=== PATIENT | male | born 2000 | race African-American/Black ===

== ENCOUNTER 2021-06-04 00:46 | Emergency (ER) | payer BC, OTHER ==
[~2021-06-04] VITALS: Ht 182.9 cm; Wt 87.1 kg
[2021-06-04] MEDS ORDERED: LIDOCAINE 1% INJ 20 ML 20 ML VIAL INJ ONE (01:00)
[2021-06-04] MEDS ORDERED: TETANUS,DIPTH,PERTUSS P/F (BOOSTRIX) 0.5 ML VIAL IM ONE (01:00)
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
[2021-06-04] MEDS ORDERED: CEPH500T PO (04:11)
[2021-06-04] MEDS ORDERED: CEPHALEXIN 250 MG (KEFLEX) CAP PO STA (04:14)
[2021-06-04] MEDS ORDERED: HYDROcodone/APAP 5 MG/325 MG (LORTAB) TAB PO ONE (04:15)
[2021-06-04 04:40] VITALS: BP 134/87
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
== END 2021-06-04 04:52 | disposition home or self-care (01) ==
LOC: ER 00:50
DX: S61.412A Laceration without foreign body of left hand, initial encounter (principal); S61.411A Laceration without foreign body of right hand, initial encounter; Z23 Encounter for immunization; W22.8XXA Striking against or struck by other objects, initial encounter
CPT/HCPCS: 12001; 12031; 12042; 13152; 90715

== ENCOUNTER 2021-06-08 11:04 | Emergency (ER) | payer OTHER ==
[~2021-06-08] VITALS: Ht 182.8 cm; Wt 85.0 kg
[~2021-06-08 11:04] MED LIST: CEPH500T PO
[2021-06-08 11:50] VITALS: BP 127/74
== END 2021-06-08 11:49 | disposition home or self-care (01) ==
LOC: EDUNIT# 11:04 → ER 11:05
DX: Z48.02 Encounter for removal of sutures (principal)

== ENCOUNTER 2023-04-25 18:38 | Emergency (ER) | payer OTHER ==
[~2023-04-25] VITALS: Ht 182 cm; Wt 86.0 kg
[2023-04-25 18:45] VITALS: BP 141/96
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
[2023-04-25] MEDS ORDERED: LIDOCAINE 1% INJ 20 ML VIAL INJ ONE (19:00)
--- NOTE | 2023-04-25 19:12 | Diagnostic Imaging Report ---
INDICATION: Fourth finger pain. FINDINGS: There is a fourth finger dislocation at the proximal interphalangeal joint. No appreciable fracture; however, post-reduction radiographs recommended. The metacarpal and the remaining phalanges are unremarkable. The carpus appeared intact. IMPRESSION: Dorsal dislocation at the PIP of the fourth finger. No visible fracture. Dictated by: Dictated on workstation # [id number]
[2023-04-25] MEDS ORDERED: ACHD5005 PO (19:25)
--- NOTE | 2023-04-25 19:27 | Diagnostic Imaging Report ---
INDICATION: Post reduction. FINDINGS: There is successful reduction of the previous PIP dislocation at the fifth finger. A tiny bony density projects along the radial margin of the distal aspect of the proximal phalanx, ovoid, 2.8 mm in long axis, smoothly marginated and likely an ossicle. No fracture or acute appearing bony avulsion is felt present. IMPRESSION: Successful reduction of prior dislocation. No fracture identified. Dictated by: Dictated on workstation # [id number]
== END 2023-04-25 19:29 | disposition home or self-care (01) ==
LOC: EDUNIT# 18:38 → ER 18:40
DX: S63.284A Dislocation of proximal interphalangeal joint of right ring finger, initial encounter (principal); W21.01XA Struck by football, initial encounter; Y92.321 Football field as the place of occurrence of the external cause; Y93.61 Activity, american tackle football
CPT/HCPCS: 73130

== ENCOUNTER 2023-08-13 10:04 | Emergency (ER) | payer OTHER ==
[~2023-08-13] VITALS: Ht 182.8 cm; Wt 90.7 kg
[~2023-08-13 10:04] MED LIST changes: +ACHD5005 PO
--- NOTE | 2023-08-13 11:13 | ED EENT ---
History of Present Illness General Chief Complaint: Eye Problems Stated Complaint: RT EYE PAIN | CONJUNCTIVITIS Nursing Triage Note: PT AMB TO TRIAGE WITH CC OF BILATERAL EYE PAIN AND DISCOMFORT THAT STARTED Jul. PT WAS SEEN AT [facility] ON Jul AND WAS PRESCRIBED CIPRO AND EYE DROPS FOR CONJUNTIVITIS. PT STATES THAT HE WOKE UP TODAY AND HAD AN INCREASE IN PAIN AND REDNESS. Source: patient Exam Limitations: no limitations (MILLIE RODRIGUEZ APRN) History of Present Illness Date Seen by Provider: Aug 13, 2023 Time Seen by Provider: 11:00 Initial Comments 23-year-old male presents to the ER with complaint of eye pain. He states symptoms started in the right eye on August 03. He was seen at the [facility] walk- in clinic and told that he had conjunctivitis. He was started on tobramycin eyedrops which did not help. He was seen again and switched to ciprofloxacin eyedrops. He states that he felt like the Cipro drops were not helping, so he stopped them and restarted the tobramycin eyedrops. He reports that he was using cool compresses and started having some relief, but now is getting worse. He complains of blurry vision, feels like there is something in his eye. He reports that he wakes up with crusting in his eyes. He denies known injury or foreign body to the eyes, but states he has been rubbing his eyes a lot. Does report generalized fatigue, denies fever and body aches. (MILLIE RODRIGUEZ APRN) Allergies and Home Medications Allergies Coded Allergies: amoxicillin (Verified Allergy, Unknown, Vomiting, 06/04/21) upset stomach Patient Home Medication List Home Medication List Reviewed: Yes (MILLIE RODRIGUEZ APRN) Cephalexin (Cephalexin) 500 Mg Tablet, 500 MG PO TID Prescribed by: ARIELLE PLASENCIA on 06/04/21 041 Hydrocodone/Acetaminophen (Hydrocodone-Acetamin 5-325 mg) 5 Mg-325 Mg Tablet, 1 TAB PO Q4H PRN for PAIN-MODERATE (5-7) Prescribed by: NED ALTMAN on 04/25/231925 Review of Systems Review of Systems Constitutional: see HPI (MILLIE RODRIGUEZ APRN) Past Bxkpbhx-Bdnakb-Pnmret Hx Patient Social History Tobacco Use?: No Substance use?: No Alcohol Use?: No (MILLIE RODRIGUEZ APRN) Past Medical History Surgery/Hospitalization HX: orthopedic (MILLIE RODRIGUEZ APRN) Physical Exam Vital Signs Vital Signs - First Documented 08/13/23 10:14 Pulse 71 B/P (MAP) 162/96 (118) Pulse Ox 98 O2 Delivery Room Air (AMRTHA MOSQUEDA MD) Height, Weight, BMI Height: '" Weight: lbs. oz. kg; 27.00 BMI Method:Actual General Appearance: WD/WN, mild distress Eyes: right eye corneal abrasion; bilateral eye PERRL, bilateral eye conjunctival inflammation Neck: supple, normal inspection Cardiovascular: regular rate, rhythm Respiratory: lungs clear, normal breath sounds, no respiratory distress, no accessory muscle use Neurologic/Psychiatric: alert, normal mood/affect Skin: normal color, warm/dry (MILLIE RODRIGUEZ APRN) Procedures/Interventions Suture Size: 5-0 (MILLIE RODRIGUEZ APRN) Progress/Results/Core Measures Results/Orders Blood Pressure Mean: 118 Progress Progress Note : Progress Note Patient seen and evaluated, resting comfortably in recliner, no acute distress. I evaluated bilateral eyes under Espinosa lamp with fluorescein stain and tetracaine. Large corneal abrasion noted to right eye. Patient also has bilateral conjunctivitis symptoms. I called and spoke with the [facility], no doctors were available, but I was able to schedule a follow-up appointment for patient at 1 PM today. Results discussed with patient. Plan of care discussed with patient. Patient agrees to go to the eye clinic today 1 PM as scheduled. (MILLIE RODRIGUEZ APRN) Departure Impression Primary Impression: Corneal abrasion Disposition: 01 HOME, SELF-CARE Condition: Stable Departure-Patient Inst. Decision time for Depature: 12:31 (MILLIE RODRIGUEZ APRN) Referrals: DAVE GALICIA OD NO,LOCAL PHYSICIAN (PCP) Primary Care Physician Patient Instructions: Corneal Abrasion (DC) Add. Discharge Instructions: Go to the [facility], you have an appointment at 1 PM. Below is their address and phone number. [address] [address] Return for any new, concerning, or worsening symptoms. All discharge instructions reviewed with patient and/or family. Voiced understanding. ATTENDING PHYSICIAN NOTE: I was physically present as attending physician in the emergency department during the care of this patient. I discussed the exam and clinically presentation with Millie Rodriguez NP. Since patient has complicating factors of both corneal abrasion and conjunctivitis not improving with treatment, I recommended that she consult the optometry group. I did not personally interview or exam this patient, and not otherwise directly involved in the decision making or delivery of care for this patient. (MARTHA MOSQUEDA MD) Copy Copies To 1: DAVE GALICIA OD, BRITTANY R APRN Aug 13, 2023 11:12 MARTHA MOSQUEDA MD Aug 14, 2023 11:36
[2023-08-13] MEDS ORDERED: TETRACAINE 0.5% OPHTH SOLN 4 ML BTL (SINGLE DOSE ONLY) OU ONE (12:15)
[2023-08-13] MEDS ORDERED: FLUORESCEIN 1 MG OPHTHALMIC STRIPS OU ONE (12:15)
[2023-08-13 12:39] VITALS: BP 148/86
== END 2023-08-13 12:36 | disposition home or self-care (01) ==
LOC: EDUNIT# 10:04 → ER 10:07
DX: S05.01XA Injury of conjunctiva and corneal abrasion without foreign body, right eye, initial encounter (principal); X58.XXXA Exposure to other specified factors, initial encounter
CPT/HCPCS: 99281